=== PATIENT | female | born 1995 | race Two or more races ===

== ENCOUNTER 2020-10-30 10:33 | Inpatient (IN) | payer OTHER ==
[~2020-10-30] VITALS: Ht 170.2 cm; Wt 145.4 kg
[2020-10-30] MEDS ORDERED: SODIUM CHLORIDE 0.9% 1,000 ML IV ONE ×2 (11:30→12:45)
[2020-10-30 12:19] LABS: BASOPHILS % (AUTO) 0.3 % (0.0-2.0); EOSINOPHILS % (AUTO) 0.4 % (1.0-6.0); HEMATOCRIT 45.3 % (36-46); LYMPHOCYTES # (AUTO) 2.3 K/uL (1.0-4.8); LYMPHOCYTES % (AUTO) 22.7 % (22.0-44.0); MEAN CORPUSCULAR HEMOGLOBIN 29.8 pg (26.0-34.0); MEAN CORPUSCULAR HGB CONC 33.2 G/dL (31.0-37.0); MEAN CORPUSCULAR VOLUME 90 fL (80-100); MONOCYTES # (AUTO) 0.6 K/uL (0.1-1.0); MONOCYTES % (AUTO) 5.9 % (2.0-9.0); NEUTROPHILS # (AUTO) 7.3 K/uL (1.8-7.7); NEUTROPHILS % (AUTO) 70.7 % (40.0-70.0); PLATELET COUNT (AUTO) 229 K/uL (150-450); RED BLOOD CELL COUNT(AUTO) 5.04 MIL/uL (4.00-5.20); RED CELL DISTRIBUTION WIDTH 13.3 % (11.5-14.5)
[2020-10-30 12:27] LABS: ANION GAP 6 mmol/L (8-16); CALCIUM, TOTAL 9.4 mg/dL (8.8-10.5); CARBON DIOXIDE 28 mmol/L (22-29); CHLORIDE 100 mmol/L (98-107); CREATININE 0.92 mg/dL (0.60-1.30); GLOMERULAR FILTR. RATE CALC > 60 mL/min (>60); GLUCOSE,RANDOM 318 mg/dL (70-110); POTASSIUM 3.9 mmol/L (3.5-5.1); SODIUM SERUM 134 mmol/L (136-145); UREA NITROGEN, BLOOD 11 mg/dL (7-18)
[2020-10-30 12:38] LABS: ACETONE,BLOOD NEGATIVE (NEGATIVE)
[2020-10-30 12:41] LABS: ALANINE AMINOTRANSFERASE 259 U/L (12-78); ALBUMIN 3.7 g/dL (3.4-5.0); ALKALINE PHOSPHATASE 117 U/L (46-116); ASPARTATE AMINOTRANSFERASE 160 U/L (15-37); BILIRUBIN,TOTAL 0.7 mg/dL (0.1-1.0); HCG,QUANTITATIVE < 1 mIU/mL (0-6); TOTAL PROTEIN, SERUM 8.1 g/dL (6.4-8.2)
[2020-10-30] MEDS ORDERED: DEXTROSE 50%-WATER 25 GM/50 ML SYRINGE IVP PRN (13:15)
[2020-10-30] MEDS ORDERED: ACETAMINOPHEN 325 MG TABLET PO PRN (13:15)
[2020-10-30] MEDS ORDERED: ZOLPIDEM TARTRATE 5 MG TABLET PO PRN (13:15)
[2020-10-30 13:53] LABS: COVID AG,FIA SOURCE NASOPHARYNGEAL
[2020-10-30 14:49] LABS: CREATINE KINASE, TOTAL ONLY 102 U/L (26-192)
[2020-10-30 16:03] VITALS: BP 137/81
[2020-10-30] MEDS: MetFORMIN HCL 850 MG TABLET PO SCH (17:06)
[2020-10-30] MEDS: HEPARIN SODIUM,PORCINE 5,000 UNITS/ML VIAL SQ SCH (17:07)
[2020-10-30] MEDS: INSULIN LISPRO 100 UNITS/ML SQ PRN ×2 (17:07→20:56)
[2020-10-30 18:12] LABS: GLUCOMETER DEV NAME(LOC) 6N.1; GLUCOSE,POINT OF CARE 244 MG/DL (70-110)
[2020-10-30 20:30] VITALS: BP 115/70
[2020-10-30] MEDS: DOCUSATE SODIUM 100 MG CAPSULE PO SCH (20:54)
[2020-10-30 23:54] LABS: APPEARANCE,URINE CLEAR (CLEAR); BILIRUBIN,URINE NEGATIVE (NEGATIVE); GLUCOSE, URINE (UA) >=1000 mg/dL (NEGATIVE); KETONES,URINE TRACE mg/dL (NEGATIVE); LEUKOCYTE ESTERASE ,URINE NEGATIVE (NEGATIVE); NITRATE,URINE NEGATIVE (NEGATIVE); OCCULT BLOOD,URINE NEGATIVE (NEGATIVE); PROTEIN,URINE NEGATIVE (NEGATIVE)
[2020-10-30 23:56] LABS: BACTERIA,URINE Rare /HPF (None Seen); RBC,URINE 0-2 /HPF (0-2); SQUAMOUS EPITHELIAL CELL,UR Rare /LPF (None Seen); WBC,URINE 0-2 /HPF (0-5)
[2020-10-31] MEDS: HEPARIN SODIUM,PORCINE 5,000 UNITS/ML VIAL SQ SCH ×2 (00:08→08:11)
[2020-10-31 01:03] LABS: GLUCOMETER DEV NAME(LOC) 6N.1; GLUCOSE,POINT OF CARE 257 MG/DL (70-110)
[2020-10-31 04:46] VITALS: BP 121/86
[2020-10-31] MEDS: INSULIN LISPRO 100 UNITS/ML SQ PRN ×2 (05:28→11:29)
[2020-10-31 06:53] LABS: GLUCOMETER DEV NAME(LOC) 6S.1; GLUCOSE,POINT OF CARE 231 MG/DL (70-110)
[2020-10-31 08:11] VITALS: BP 142/78
[2020-10-31] MEDS: MetFORMIN HCL 850 MG TABLET PO SCH (08:11)
[2020-10-31] MEDS: DOCUSATE SODIUM 100 MG CAPSULE PO SCH (08:11)
[2020-10-31] MEDS ORDERED: FAMOTIDINE 20 MG TABLET PO SCH (09:00)
[2020-10-31] MEDS ORDERED: FAMO20 PO (10:06)
[2020-10-31] MEDS ORDERED: METF-960 PO (10:07)
[2020-10-31] MEDS ORDERED: ACET-2247 PO (10:08)
[2020-10-31] MEDS ORDERED: INSU100V SQ (10:10)
[2020-10-31 11:33] LABS: GLUCOMETER DEV NAME(LOC) 6N.1; GLUCOSE,POINT OF CARE 274 MG/DL (70-110)
[2020-10-31] MEDS ORDERED: MetFORMIN HCL 500 MG TABLET PO SCH (18:00)
== END 2020-10-31 13:45 | disposition home or self-care (01) | DRG 638 ==
LOC: EMS 10:46 → 6S 15:00
PROVIDERS: ADMIT Internal Medicine; ATTEND Internal Medicine
DX: E11.65 Type 2 diabetes mellitus with hyperglycemia (principal); Z68.43 Body mass index [BMI] 50.0-59.9, adult; E44.0 Moderate protein-calorie malnutrition; F12.90 Cannabis use, unspecified, uncomplicated; F17.210 Nicotine dependence, cigarettes, uncomplicated; E66.01 Morbid (severe) obesity due to excess calories; L40.9 Psoriasis, unspecified; R74.01 Elevation of levels of liver transaminase levels; Z91.19 Patient's noncompliance with other medical treatment and regimen; K74.60 Unspecified cirrhosis of liver; K75.81 Nonalcoholic steatohepatitis (NASH); Z20.822 Contact with and (suspected) exposure to COVID-19
CPT/HCPCS: 76700; 80053; 81001; 82009; 82550; 82962; 83036; 83735; 84100; 84702; 85025; 99285; J1644; J7030